=== PATIENT | male | born 1945 | race Two or more races ===

== ENCOUNTER 2016-03-25 05:19 | Inpatient (IN) | payer MEDICARE, MEDICAID ==
[~2016-03-25] VITALS: Ht 157.5 cm; Wt 66.2 kg
[2016-03-25] MEDS ORDERED: LORA10TA68 PO (06:06)
[2016-03-25] MEDS ORDERED: METF500T4 PO (06:06)
[2016-03-25] MEDS ORDERED: GLIM2TAB2 PO (06:06)
[2016-03-25] MEDS ORDERED: ATOR20TA PO (06:06)
[2016-03-25] MEDS ORDERED: OXYC-34 PO (06:06)
[2016-03-25] MEDS ORDERED: LOSA50TA21 PO (06:06)
[2016-03-25] MEDS ORDERED: AMLO5TAB2 PO (06:06)
[2016-03-25] MEDS ORDERED: KETOROLAC TROMETHAMINE INJ 30 MG/ML VIAL ONE (06:10)
[2016-03-25] MEDS ORDERED: BUPIVACAINE MPF 0.5% W/EPI INJ 30 ML VIAL ONE (06:10)
[2016-03-25] MEDS ORDERED: BACITRACIN 50000 UNITS/VIAL ONE (06:11)
[2016-03-25] MEDS ORDERED: CEFAZOLIN SODIUM/DEXTROSE,ISO 50 ML IV ONE (06:15)
[2016-03-25] MEDS ORDERED: IV LR 1000 ML 1,000 ML ONE (06:16)
[2016-03-25] MEDS ORDERED: IV SET PRIMARY 1 EA INFUS.SET MC ONE (06:17)
[2016-03-25] MEDS ORDERED: SECONDARY IV SET 1 EA INFUS.SET MC ONE ×2 (06:17→14:13)
[2016-03-25] MEDS ORDERED: NEEDLELESS EST SET LARGE BORE 1 EA INFUS.SET MC ONE (06:17)
[2016-03-25] MEDS ORDERED: SUCCINYLCHOLINE CHLORIDE 20 MG/ML VIAL ONE (06:20)
[2016-03-25] MEDS ORDERED: MIDAZOLAM HCL 2 MG/2ML VIAL IV ONE (06:38)
[2016-03-25 07:10] VITALS: BP 151/74
[2016-03-25] MEDS ORDERED: TRANEXAMIC ACID 3,000 MG in SODIUM CHLORIDE IRRIG SOLUTION 70 ML IR ONE (07:30)
[2016-03-25] MEDS ORDERED: MORPHINE SULFATE/PF 10 MG/10ML (1MG/ML) AMPUL ONE (09:01)
[2016-03-25 09:45] VITALS: BP 126/69
[2016-03-25] MEDS ORDERED: ONDANSETRON HCL/PF 4 MG/2 ML VIAL IVP PRN (11:30)
[2016-03-25] MEDS ORDERED: BISACODYL SUPP (10 MG) 10 MG/SUPP.RECT SUPP.RECT RC PRN (11:30)
[2016-03-25] MEDS ORDERED: DOCUSATE SODIUM 250 MG CAPSULE PO PRN (11:30)
[2016-03-25] MEDS ORDERED: SENNOSIDES 8.6 MG TABLET PO PRN (11:30)
[2016-03-25] MEDS ORDERED: HYDROCODONE/APAP 5/325MG 1 EACH TABLET PO PRN (11:30)
[2016-03-25] MEDS ORDERED: ZOLPIDEM TARTRATE 5 MG TABLET PO PRN (11:30)
[2016-03-25 12:00] VITALS: BP 114/70
[2016-03-25] MEDS ORDERED: IV SET PRIMARY PUMP SET 1 EA INFUS.SET MC ONE (12:44)
[2016-03-25] MEDS: IV D5/0.45 NACL 1,000 ML IV PRN ×2 (12:48→21:52)
[2016-03-25] MEDS ORDERED: NALOXONE HCL 0.4 MG/ML AMPUL IV PRN (13:00)
[2016-03-25] MEDS ORDERED: HYDROMORPHONE 1 MG/1 ML DISP.SYRIN IV PRN ×2 (13:00→14:00)
[2016-03-25] MEDS ORDERED: MAG HYDROX/AL HYDROX/SIMETH 30 ML UDC PO PRN (14:00)
[2016-03-25] MEDS ORDERED: MAGNESIUM HYDROXIDE 30 ML UDC PO PRN (14:00)
[2016-03-25] MEDS ORDERED: diphenhydrAMINE HCL 25 MG CAPSULE PO PRN (14:00)
[2016-03-25] MEDS: ANCEF 1 GM/50 ML D5W IV SCH ×4 (14:24→21:51)
[2016-03-25 16:00] VITALS: BP 103/61
[2016-03-25] MEDS ORDERED: DEXTROSE 50%-WATER 50 ML DISP.SYRIN IV PRN (16:00)
[2016-03-25] MEDS: BLOOD SUGAR DIAGNOSTIC 1 EACH STRIP IN SCH ×2 (17:14→22:37)
[2016-03-25] MEDS: DOCUSATE SODIUM 100 MG CAPSULE PO SCH (17:15)
[2016-03-25] MEDS: INSULIN REGULAR, HUMAN 100 UNIT/ML 3 ML VIAL SQ PRN ×2 (17:18→21:54)
[2016-03-25 20:00] VITALS: BP 126/71
[2016-03-25] MEDS: PANTOPRAZOLE 40 MG TABLET.DR PO SCH (22:08)
[2016-03-26] VITALS (7 sets, daily range): BP systolic 108–135; BP diastolic 64–71
[2016-03-26] MEDS: IV D5/0.45 NACL 1,000 ML IV PRN (05:08)
[2016-03-26] MEDS: INSULIN REGULAR, HUMAN 100 UNIT/ML 3 ML VIAL SQ PRN ×4 (05:47→22:07)
[2016-03-26] MEDS: BLOOD SUGAR DIAGNOSTIC 1 EACH STRIP IN SCH ×4 (07:07→21:55)
[2016-03-26 08:07] LABS: HEMOGLOBIN 10.7 g/dL (13.5-17.5)
[2016-03-26] MEDS: AMLODIPINE BESYLATE 5 MG TABLET PO SCH (08:28)
[2016-03-26] MEDS: ATORVASTATIN 10 MG TABLET PO SCH (08:28)
[2016-03-26] MEDS: LORATADINE 10 MG TABLET PO SCH (08:28)
[2016-03-26] MEDS: DOCUSATE SODIUM 100 MG CAPSULE PO SCH ×2 (08:28→18:05)
[2016-03-26] MEDS: LOSARTAN POTASSIUM 50 MG TABLET PO SCH (08:28)
[2016-03-26] MEDS: RIVAROXABAN 10 MG TABLET PO SCH (08:30)
[2016-03-26] MEDS: HYDROCODONE/APAP 10/325MG 1 EA TABLET PO PRN ×3 (08:32→19:51)
[2016-03-26] MEDS: PANTOPRAZOLE 40 MG TABLET.DR PO SCH (21:10)
[2016-03-26] MEDS ORDERED: ONDANSETRON HCL/PF 4 MG/2 ML VIAL IV PRN (22:00)
[2016-03-27] MEDS: BLOOD SUGAR DIAGNOSTIC 1 EACH STRIP IN SCH ×3 (04:52→19:14)
[2016-03-27] MEDS: HYDROCODONE/APAP 10/325MG 1 EA TABLET PO PRN ×2 (06:51→20:18)
[2016-03-27 07:54] LABS: BASOPHILS # (AUTO) 0.1 /CMM (0.0-0.2); BASOPHILS % (AUTO) 0.4 % (0.0-2.0); DIFF TOTAL % 100 %; EOSINOPHILS # (AUTO) 0.2 /CMM (0.0-0.7); EOSINOPHILS % (AUTO) 1.3 % (0.0-6.0); HEMATOCRIT 29 % (39-51); HEMOGLOBIN 9.8 g/dL (13.5-17.5); LYMPHOCYTES # (AUTO) 3.6 /CMM (0.8-4.8); LYMPHOCYTES % (AUTO) 28.7 % (20.0-44.0); MEAN CORPUSCULAR HEMOGLOBIN 29 PG (26.0-33.0); MEAN CORPUSCULAR HGB CONC 34 g/dl (31.0-36.0); MEAN CORPUSCULAR VOLUME 87 fL (80-96); MONOCYTES # (AUTO) 1.4 /CMM (0.1-1.30); MONOCYTES % (AUTO) 11.1 % (2.0-12.0); NEUTROPHILS # (AUTO) 7.2 /CMM (1.8-8.9); NEUTROPHILS % (AUTO) 58.5 % (43.0-81.0); PLATELET COUNT (AUTO) 307 /CMM (150-450); RED BLOOD CELL COUNT(AUTO) 3.35 MIL/uL (4.5-6.0); WHITE BLOOD COUNT (AUTO) 12.4 K/uL (4.3-11.0)
[2016-03-27 08:00] VITALS: BP 125/69
[2016-03-27 08:11] LABS: CALCIUM, SERUM 7.6 mg/dL (8.5-10.1); CREATININE 1.5 mg/dL (0.6-1.3); POTASSIUM 4.8 mmol/L (3.5-5.1)
[2016-03-27] MEDS: DOCUSATE SODIUM 100 MG CAPSULE PO SCH ×2 (09:00→17:00)
[2016-03-27] MEDS: ATORVASTATIN 10 MG TABLET PO SCH (09:14)
[2016-03-27] MEDS: LOSARTAN POTASSIUM 50 MG TABLET PO SCH (09:15)
[2016-03-27] MEDS: AMLODIPINE BESYLATE 5 MG TABLET PO SCH (09:15)
[2016-03-27] MEDS: LORATADINE 10 MG TABLET PO SCH (09:15)
[2016-03-27] MEDS: INSULIN REGULAR, HUMAN 100 UNIT/ML 3 ML VIAL SQ PRN (13:16)
[2016-03-27] MEDS: ACETAMINOPHEN 325 MG TABLET PO PRN ×2 (14:26→19:16)
[2016-03-27 16:00] VITALS: BP 144/72
[2016-03-27] MEDS: RIVAROXABAN 10 MG TABLET PO SCH (19:14)
== END 2016-03-27 21:24 | disposition home or self-care (01) | DRG 469 ==
LOC: DS 05:19 → UNDOADMIN 05:20 → MED 05:20 → EDSTATUS 06:30 → MED 12:12 → TELE 21:47 → MED 03-26 10:27
PROVIDERS: ADMIT Nurse Practitioner Acute Care; ATTEND Internal Medicine
PROC: 0SRC0J9 Replacement of Right Knee Joint with Synthetic Substitute, Cemented, Open Approach (ICD-10-PCS; principal; 2016-03-25 07:28)
DX: M17.11 Unilateral primary osteoarthritis, right knee (principal); N17.0 Acute kidney failure with tubular necrosis; I10 Essential (primary) hypertension; E78.5 Hyperlipidemia, unspecified; K21.9 Gastro-esophageal reflux disease without esophagitis; E11.65 Type 2 diabetes mellitus with hyperglycemia; D64.9 Anemia, unspecified; E83.51 Hypocalcemia; E78.00 Pure hypercholesterolemia, unspecified; Z87.01 Personal history of pneumonia (recurrent)
CPT/HCPCS: 36415; 80048-TC; 82962-TC; 85025-TC; 85027-TC; 86850-TC; 86921-TC; 87081-TC; 88305-TC; 88311-TC; 97001-TC; 97110-TC; 97116-TC; 97530-TC; 97760-TC; A4217; A6402; C1713; J0330; J0690; J1815; J1885; J2250; J2274; J3490; J7060; J7120